=== PATIENT | female | born 1995 | race Two or more races ===

== ENCOUNTER 2021-10-11 15:30 | Inpatient (IN) | payer OTHER ==
[~2021-10-11] VITALS: Ht 177.8 cm; Wt 89.4 kg
[2021-10-19] MEDS ORDERED: IRON325 MG PO (03:03)
[2021-10-19] MEDS ORDERED: PRENATAL TABLE1 EAC1 PO (03:03)
== END 2021-10-21 14:30 | disposition home or self-care (01) | DRG 807 ==
LOC: LDR 10-19 02:45 → SURG-SUITE 10-19 02:45 → OB/GYN 10-19 15:30 → SURG-SUITE 10-21 14:30
PROVIDERS: ADMIT Obstetrics & Gynecology; ATTEND Obstetrics & Gynecology
PROC: 10E0XZZ Delivery of Products of Conception, External Approach (ICD-10-PCS; principal; 2021-10-19)
PROC: 4A1HXCZ Monitoring of Products of Conception, Cardiac Rate, External Approach (ICD-10-PCS; 2021-10-19)
DX: O80 Encounter for full-term uncomplicated delivery (principal); Z37.0 Single live birth; Z3A.40 40 weeks gestation of pregnancy; Z20.822 Contact with and (suspected) exposure to COVID-19